=== PATIENT | female | born 1970 | race African-American/Black ===

== ENCOUNTER 2018-08-08 11:29 | Inpatient (IN) | payer SELFPAY ==
[~2018-08-08] VITALS: Ht 154.9 cm; Wt 74.8 kg
[2018-08-08] MEDS ORDERED: ASPIRIN 81MG TABLET PO ONE (12:00)
[2018-08-08] MEDS ORDERED: NITROGLYCERIN 0.4MG TABLET SL SL PRN ×2 (12:00→16:30)
[2018-08-08] MEDS ORDERED: CLONIDINE 0.2MG TABLET PO ONE (12:15)
[2018-08-08 13:06] LABS: EOSINOPHILS % 0.7 % (0.0-5.0); HEMATOCRIT. 37.4 % (36.0-48.0); HEMOGLOBIN. 12.5 g/dL (12.0-16.0); LYMPHOCYTES % 41.7 % (20.0-50.0); MEAN CORPUSCULAR HEMOGLOBIN 30.1 pg (28.0-32.0); MEAN CORPUSCULAR VOLUME 89.5 fL (81.0-99.0); MEAN PLATELET VOLUME 8.9 fl (7.4-10.4); MONOCYTES % 6.4 % (2.0-8.0); NEUTROPHILS % 50.2 % (40.0-76.0); PLATELET 252 x1000/uL (130-400); RED BLOOD CELL COUNT 4.17 mill/uL (4.2-5.4); RED CELL DISTRIBUTION WIDTH 14.7 % (11.6-14.6)
[2018-08-08 13:13] LABS: CHLORIDE 107 mEq/L (98-107)
[2018-08-08 13:16] LABS: D-DIMER 1.15 mg/L FEU (<0.50); INR 1.1; PARTIAL THROMBOPLASTIN TIME 27.8 sec (23.4-31.0); PROTHROMBIN TIME 10.6 sec (9.1-11.1)
[2018-08-08 13:23] LABS: HCG SCREEN NEGATIVE
[2018-08-08] MEDS ORDERED: POTASSIUM CHLORIDE 20MEQ TABLET SR PO ONE (14:00)
[2018-08-08] MEDS ORDERED: IOHEXOL-350 100 ML BOTTLE ONE (15:01)
[2018-08-08] MEDS ORDERED: ACETAMINOPHEN 325MG TABLET PO PRN (16:30)
[2018-08-08] MEDS ORDERED: ZOLPIDEM TARTRATE 5MG TABLET PO PRN (16:30)
[2018-08-08] MEDS ORDERED: IPRATROPIUM/ALBUTEROL 0.5-3(2.5)MG/3ML NEB INH PRN (16:30)
[2018-08-08] MEDS ORDERED: LORAZEPAM 0.5MG TABLET PO PRN (16:30)
[2018-08-08] MEDS ORDERED: KETOROLAC 15MG/ML VIAL IV PRN (16:30)
[2018-08-08] MEDS ORDERED: DOCUSATE SODIUM 100MG CAPSULE PO PRN (16:30)
[2018-08-08] MEDS ORDERED: GUAIFENESIN 200MG/10ML SUGAR FREE UDC PO PRN (16:30)
[2018-08-08] MEDS ORDERED: CLONIDINE 0.1MG TABLET PO PRN (16:30)
[2018-08-08] MEDS ORDERED: DIPHENHYDRAMINE 50MG/ML VIAL IV PRN (16:30)
[2018-08-08] MEDS ORDERED: ONDANSETRON HCL 4MG/2ML INJ IV PRN (16:30)
[2018-08-08] MEDS ORDERED: MAGNESIUM/ALUMINUM HYDROXIDE/SIMETHICONE 30ML UDC PO PRN (16:30)
[2018-08-08] MEDS ORDERED: NA PHOS,M-B/NA PHOS,DI-BA ENEMA 118ML PR PRN (16:30)
[2018-08-08 16:52] LABS: ETHANOL BLOOD < 10 mg/dL
[2018-08-08 16:56] LABS: HDL CHOLESTEROL 73 mg/dL (40-59); LDL CHOLESTEROL 112 mg/dL (5-100)
[2018-08-08 17:03] LABS: *AMPHETAMINES SCREEN URINE NEGATIVE (NEGATIVE); *BARBITURATES SCREEN URINE NEGATIVE (NEGATIVE); *BENZODIAZEPINES SCREEN URINE NEGATIVE (NEGATIVE)
[2018-08-08 17:04] LABS: *COCAINE SCREEN URINE NEGATIVE (NEGATIVE); CANNABINOID URINE SCREEN NEGATIVE (NEGATIVE); METHADONE URINE SCREEN NEGATIVE (NEGATIVE); OPIATES URINE SCREEN NEGATIVE (NEGATIVE); PHENCYCLIDINE URINE SCREEN NEGATIVE (NEGATIVE)
[2018-08-08 22:00] VITALS: BP 173/108
[2018-08-08] MEDS ORDERED: ENOXAPARIN 40MG/0.4ML SYR SUBCUT SCH (22:00)
[2018-08-08] MEDS: METOPROLOL TARTRATE 25MG TABLET PO SCH (22:22)
[2018-08-08] MEDS: LISINOPRIL 20MG TABLET PO SCH (22:23)
[2018-08-08] MEDS: FAMOTIDINE 20MG TABLET PO SCH (22:23)
[2018-08-09] VITALS: BP 133/68
[2018-08-09 00:57] LABS: CREATINE KINASE 58 IU/L (26-192); CREATINE KINASE MB FRACTION < 1.0 ng/mL (0.5-3.6)
[2018-08-09 04:00] VITALS: BP 122/66
[2018-08-09 07:30] VITALS: BP 119/84
[2018-08-09 07:54] LABS: CREATINE KINASE 58 IU/L (26-192); CREATINE KINASE MB FRACTION < 1.0 ng/mL (0.5-3.6)
[2018-08-09 08:00] VITALS: BP 115/71
[2018-08-09] MEDS ORDERED: ASPIRIN 325MG EC TABLET PO SCH (09:00)
[2018-08-09] MEDS: FAMOTIDINE 20MG TABLET PO SCH (09:08)
[2018-08-09] MEDS: LISINOPRIL 20MG TABLET PO SCH (09:09)
[2018-08-09] MEDS: METOPROLOL TARTRATE 25MG TABLET PO SCH (09:11)
[2018-08-09 12:00] VITALS: BP 118/79
[2018-08-09 12:15] VITALS: BP 115/71
== END 2018-08-09 13:50 | disposition home or self-care (01) | DRG 203 ==
LOC: ER 12:40 → 7WST 15:10 → ENRESERV 19:44
PROVIDERS: ADMIT Internal Medicine; ATTEND Internal Medicine
DX: R07.89 Other chest pain (principal); E87.6 Hypokalemia; I10 Essential (primary) hypertension
CPT/HCPCS: 36415; 71045; 71275; 80061; 80305; 81025; 82550; 82553; 83036; 83880; 84484; 84703; 85379; 93005; 99285; G0482; J1650; J1885; Q9967